=== PATIENT | female | born 1965 | race Caucasian/White ===

== ENCOUNTER → 2018-09-18 | Outpatient (CLI) | payer OTHER ==
[~2018-09-18] MED LIST: GADOBUTROL 10 ML VIAL IVP ONE
== END ==
LOC: FIMAGING 16:03
PROVIDERS: ATTEND Internal Medicine
DX: H57.89 Other specified disorders of eye and adnexa (principal); M79.89 Other specified soft tissue disorders
CPT/HCPCS: A9585